=== PATIENT | female | born 1965 | race Caucasian/White ===

== ENCOUNTER 2021-10-07 18:37 | Inpatient (IN) ==
[2021-10-07 19:16] VITALS: BMI 23.3
--- NOTE | 2021-10-07 19:51 | DR.NAUSEAF ---
HPI Time Seen Time Seen by Provider: 10/07/21 19:50 Primary Care Physician Primary Care Physician: LEANNE DOE AT [facility] Complaints Chief Complaint Doctors Comments: Abd pain with N/V onset last PM Chief Complaint:: PT IN ED VIA WHEELCHAIR WITH C/O NAUSEA AN VOMITING SINCE LAST NIGHT. PT STATES SHE THINKS SHE MAY HAVE A BLOCKAGE. COVID-19 Coronavirus risk:travel/contact w/high risk person: No Has patient experienced Coronavirus symptoms: No Reviewed Nurses Notes Reviewed: Yes Source History Provided: Patient Mode of Arrival Mode of Arrival: Wheelchair Timing Onset of Chief Complaint: 10/06/21 Associated Signs and Symptoms Abdominal Pain Quality: Aching Abdominal Pain Location: Diffuse PMH PMH Past Medical History: Yes Past Medical History: Arthritis, Depression and Seizures Past Medical History Comment: CROHNS DISEASE Past Surgical History: Yes Surgical History: Abdominal Surgery, PREPARATION [employer] FREEZING Surgery and Other Past Surgical History Comment: COLOSTOMY BRAIN HERNIA Family History History of Family Medical Conditions: Yes Family Medical History: Diabetes Mellitus, Cancer, [place], Coronary Artery Disease, Heart Failure and Hypertension Social History Does patient currently use any type of tobacco product: No Have you used tobacco products in the last 12 months: No Type of Tobacco Use: None Does any household member use tobacco: No Alcohol Use: None Do you use any recreational Drugs:: No Lives With: Alone Lives Where: Home Travel Risk Coronavirus risk:travel/contact w/high risk person: No Has patient experienced Coronavirus symptoms: No Infectious screening In the last 2 months have you had wt loss of >10#?: NO Have you had fever, night sweats or hemotysis?: No Have you traveled outside the country in the last 6 months?: No Isolation: Standard ROS Review of Systems Constitutional: No Symptoms Reported and See HPI Eyes: No Symptoms Reported and See HPI ENTM: No Symptoms Reported and See HPI Respiratoy: No Symptoms Reported and See HPI Cardiovascular: No Symptoms Reported and See HPI Gastrointestinal/Abdominal: No Symptoms Reported and See HPI Genitourinary: No Symptoms Reported and See HPI Neurological: No Symptoms Reported and See HPI Musculoskeletal: No Symptoms Reported and See HPI Integumentary: No Symptoms Reported and See HPI Hematologic/Lymphatic: No Symptoms Reported and See HPI Endocrine: No Symptoms Reported and See HPI Psychiatric: No Symptoms Reported and See HPI All Other Systems: Reviewed and Negative PE Vital Signs Vitals: Temperature 97.6 F Pulse Rate 53 Respiratory Rate 16 Blood Pressure [Right Arm] 122/78 Blood Pressure 89/64 O2 Sat by Pulse Oximetry 98 General Limitations: No Limitations General Appearance: Alert and In No Apparent Distress Head Head Exam: Normal Inspection Eyes Eye exam: Normal Appearance ENT ENT Exam: Normal Exam Neck Neck Exam: Normal Inspection Chest Chest Inspection: Normal Inspection Respiratory Respiratory Exam: Normal Lung Sounds Bilat Respiratory Exam: Bilateral: Clear to Auscultation Cardiovascular Cardiovascular Exam: Regular Rate and Normal Rhythm Abdominal Exam Abdominal Exam: Normal Inspection, Normal Bowel Sounds and Soft Rectal Rectal Exam: Deferred External Exam: Female: Deferred : Speculum Exam (Female): Deferred : Bimanual Exam (female): Deferred Extremities Extremities Exam: Normal Inspection Back Back Exam: Normal Inspection Neurologic Neurological Exam: Alert and Oriented X3 Psychiatric Psychiatric Exam: Normal Affect and Normal Mood Skin Skin Exam: Warm, Dry, Intact and Normal Color MDM Differential Diagnosis Differential Diagnosis: Considerations may Include:: Bowel Obstruction, Gastroenteritis, Inflammatory BD and Urinary Tract Infection COURSE Treatment Treatment: Labs, CT, and medications Reevaluation 1st: Improved Consultation Called: 23:17 Consultation Comments: Spoke with Dr. Pal agrees to admit patient Education/Counseling Education/Counseling: Patient Educated On: Treatment and Diagnosis ROR Labs Reviewed Laboratory Results Reviewed?: Yes Result Diagrams: 10/11/21 05:45 10/11/21 05:45 Laboratory: WBC 9.7 X10^3/uL (3.6-10.0) 10/07/21 20:05 RBC 4.28 X10^6/uL (3.5-5.4) 10/07/21 20:05 Hgb 13.3 g/dL (12.0-16.0) 10/07/21 20:05 Hct 39.5 % (36.0-47.0) 10/07/21 20:05 MCV 92.2 fL (80.0-100.0) 10/07/21 20:05 MCH 31.0 pg (27.0-34.0) 10/07/21 20:05 MCHC 33.6 g/dL (33.0-35.0) 10/07/21 20:05 RDW 14.0 % (11.6-16.5) 10/07/21 20:05 Plt Count 261 X10^3/uL (150.0-450.0) 10/07/21 20:05 Plt Count Comment Adequate (ADEQUATE) 10/07/21 20:05 MPV 8.0 fL (7.4-11.0) 10/07/21 20:05 Neut % (Auto) 90.4 % (42.0-75.0) H 10/07/21 20:05 Lymph % (Auto) 6.3 % (21.0-51.0) L 10/07/21 20:05 [place] % (Auto) 2.9 % (0.0-13.0) 10/07/21 20:05 Eos % (Auto) 0.2 % (0.9-2.9) L 10/07/21 20:05 Baso % (Auto) 0.2 % (0.2-1.0) 10/07/21 20:05 Neut # (Auto) 8.7 x10^3/uL (2.2-4.8) H 10/07/21 20:05 Lymph # (Auto) 0.6 X10^3/uL (1.3-2.9) L 10/07/21 20:05 [place] # (Auto) 0.3 x10^3/uL (0.3-0.8) 10/07/21 20:05 Eos # (Auto) 0.0 x10^3/uL (0.0-0.2) 10/07/21 20:05 Baso # (Auto) 0.0 X10^3/uL (0.0-0.1) 10/07/21 20:05 Absolute Nucleated RBC 0.0 /100WBC 10/07/21 20:05 Total Counted 100 10/07/21 20:05 Neutrophils % (Manual) 90 % (39-76) H 10/07/21 20:05 Lymphocytes % (Manual) 9 % (13-43) L 10/07/21 20:05 Monocytes % (Manual) 1 % (4-9) L 10/07/21 20:05 Plt Morphology Comment Normal (NORMAL) 10/07/21 20:05 RBC Morphology Normal (NORMAL) 10/07/21 20:05 Sodium 136 mmol/L (136-145) 10/07/21 20:05 Corrected Sodium 137 mmol/L (136-145) 10/07/21 20:05 Potassium 4.2 mmol/L (3.5-5.1) 10/07/21 20:05 Chloride 102 mmol/L (98-107) 10/07/21 20:05 Carbon Dioxide 24.3 mmol/L (21-32) 10/07/21 20:05 BUN 8 mg/dL (7-18) 10/07/21 20:05 Creatinine 0.98 mg/dL (0.55-1.02) 10/07/21 20:05 Est GFR (MDRD) Af Amer > 60 (>60) 10/07/21 20:05 Est GFR (MDRD) Non-Af > 60 (>60) 10/07/21 20:05 Glucose 154 mg/dL (65-99) H 10/07/21 20:05 Calcium 9.3 mg/dL (8.5-10.1) 10/07/21 20:05 Corrected Calcium TNP 10/07/21 20:05 Total Bilirubin 1.40 mg/dL (0.2-1.0) H 10/07/21 20:05 AST 23 Units/L (15-37) 10/07/21 20:05 ALT 30 Units/L (12-78) 10/07/21 20:05 Alkaline Phosphatase 129 Units/L (46-116) H 10/07/21 20:05 Total Protein 8.0 g/dL (6.4-8.2) 10/07/21 20:05 Albumin 4.2 g/dL (3.4-5.0) 10/07/21 20:05 Globulin 3.8 g/dL (2.5-4.5) 10/07/21 20:05 Albumin/Globulin Ratio 1.1 Ratio (1.1-2.1) 10/07/21 20:05 Amylase 60 Units/L (25-115) 10/07/21 20:05 Lipase 78 Units/L (73-393) 10/07/21 20:05 Specimen Type Clean catch urine 10/07/21 20:20 Urine Color Yellow (YELLOW) 10/07/21 20:20 Urine Appearance Clear (CLEAR) 10/07/21 20:20 Urine pH 5.0 (5.0 - 8.0) 10/07/21 20:20 Ur Specific [place] 1.020 (1.000-1.030) 10/07/21 20:20 Urine Protein 2+ (NEGATIVE) 10/07/21 20:20 Urine Glucose (UA) Negative (NEGATIVE) 10/07/21 20:20 Urine Ketones Negative (NEGATIVE) 10/07/21 20:20 Urine Blood 1+ (NEGATIVE) 10/07/21 20:20 Urine Nitrite Negative (NEGATIVE) 10/07/21 20:20 Urine Bilirubin Negative (NEGATIVE) 10/07/21 20:20 Urine Urobilinogen Normal (NORMAL) 10/07/21 20:20 Ur Leukocyte Esterase Negative (NEGATIVE) 10/07/21 20:20 Urine RBC 3-5 /HPF (0-3) A 10/07/21 20:20 Urine WBC 0-2 /HPF (0-5) 10/07/21 20:20 Ur Squamous Epith Cells Few /HPF (NEGATIVE) 10/07/21 20:20 Urine Bacteria Trace /HPF (NEGATIVE) 10/07/21 20:20 Hyaline Casts Many /LPF (NEGATIVE) 10/07/21 20:20 Granular Casts Moderate /LPF (NEGATIVE) 10/07/21 20:20 Urine Mucus Many /HPF (NEGATIVE) 10/07/21 20:20 Ur Culture Indicated? No/not indicated 10/07/21 20:20 Other Results Comments: Discussed with patient XRAY XRAY Interpreted by: Radiologist X-ray Results: Name: TAMMY GIRARD [facility]#: [id number] : 1965 Sex: F Location: ER Order Number(s): [id number] Procedure(s):ABDOMEN/PELVIS W/O CON Ordering Physician: ADITYA FOX Primary Care: MATT DOE Service Date: 10/07/21 Service Time: 1952 EXAM: CT ABDOMEN AND PELVIS WITHOUT INTRAVENOUS CONTRAST HISTORY: Pain. Nausea and vomiting. TECHNIQUE: Spiral axial CT images are obtained through the abdomen and pelvis without the administration of intravenous contrast. Additional coronal and sagittal reformatted images are reconstructed. DOSIMETRY: Total DLP 433 mGycm; CTDI 8.9 mGy COMPARISON: None available. FINDINGS: GASTROINTESTINAL TRACT: There is suggestion of status post gastric bypass surgery. No evidence of gross anastomotic dehiscence seen. There are up to 4.5 cm dilated, thickened appearing, debris-filled and fluid-filled small bowel loops within the abdomen and pelvis, with completely collapsed proximal and distal small bowel loops, in keeping with high-grade small bowel obstruction; possible afferent loop obstruction (in the setting of Sharifa-en-Y) or closed-loop obstruction. No evidence for pneumatosis intestinalis, portal venous air or free intraperitoneal air, but early ischemic bowel disease cannot be entirely excluded in the appropriate clinical setting. Careful clinical correlation is advised. There is no evidence for bowel herniation, appendicitis, colitis or diverticulitis. Status post partial bowel resection with reanastomosis in the anorectal region; no anastomotic dehiscence seen. GENITOURINARY SYSTEM: There are multiple bilateral nonobstructing renal medullary region calculi; DDx includes medullary nephrocalcinosis. The kidneys are otherwise unremarkable. There is no ureteral calculus or stigmata of obstructive uropathy. The urinary bladder is grossly unremarkable for a non-dedicated exam. CT ABDOMEN: There is cholelithiasis (with calcified dependent intraluminal gallstones) in keeping with sequela of chronic cholecystitis. Dilated gallbladder; nonspecific finding which may represent sequela of NPO status; consider follow-up evaluation with ultrasound and/or HIDA scan to rule out acute gallbladder disease if clinically warranted. The liver, spleen, pancreas, adrenal glands, aorta, and inferior vena cava are within normal limits for a noncontrast CT scan. There is no intra-abdominal or retroperitoneal lymphadenopathy, free fluid, or free air seen. No abdominal herniation is noted. CT PELVIS: No pelvic sidewall or inguinal lymphadenopathy is seen. No inguinal herniation is noted. No free fluid or free air is seen. Status post hysterectomy. BONES AND JOINTS: The visualized bony structures are within normal limits. LUNG BASES: The lung bases are clear. IMPRESSION: 1. Up to 4.5 cm dilated, thickened appearing, debris-filled and fluid-filled small bowel loops within the abdomen and pelvis, with completely collapsed proximal and distal small bowel loops, in keeping with high-grade small bowel obstruction; possible afferent loop obstruction (in the setting of Sharifa-en-Y) or closed-loop obstruction. 2. No evidence for pneumatosis intestinalis, portal venous air or free intraperitoneal air, but early ischemic bowel disease cannot be entirely excluded in the appropriate clinical setting. Careful clinical correlation is advised. 3. Cholelithiasis (with calcified dependent intraluminal gallstones) in keeping with sequela of chronic cholecystitis. 4. Dilated gallbladder; nonspecific finding which may represent sequela of NPO status; consider follow-up evaluation with ultrasound and/or HIDA scan to rule out acute gallbladder disease if clinically warranted. 5. multiple bilateral nonobstructing renal medullary region calculi; DDx includes medullary nephrocalcinosis; no no ureteral stones or obstructive uropathy. 6. No free fluid, free air, mass lesions, or lymphadenopathy seen. Electronically signed by: Emory Howell (Oct 07, 2021 21:41:34) Report Electronically signed: 10/07/218 CC: Aditya Fox Opioid Opioid Risk Tool Age (Addy box if 16-45): No History of Preadolescent Sexual Abuse: No Total: 0 Total Score Risk Category: Low Risk Copyright: Archie RAMIREZ predicting aberrant behaviors Instructions Instructions: Nausea, Adult Nausea and Vomiting, Adult Nausea and Vomiting, Adult, [id number] Nausea, Adult, [id number] Forms: Excuse From Work or School Precautions for COVID19 [facility] Patient Portal Social Distancing
[2021-10-07] MEDS ORDERED: PEPCID 20 MG VIAL 20 MG in NS 50 ML IV 50 ML IV ONE (19:55)
[2021-10-07] MEDS ORDERED: NS 1,000 ML IV 1,000 ML ONE (20:09)
[2021-10-07] MEDS ORDERED: PEPCID 20 MG VIAL ONE (20:11)
[2021-10-07] MEDS ORDERED: NS 50 ML IV 50 ML IV ONE (20:13)
[2021-10-07 20:14] LABS: BASOPHILS % (AUTO) 0.2 % (0.2-1.0); EOSINOPHILS % (AUTO) 0.2 % (0.9-2.9); HEMATOCRIT 39.5 % (36.0-47.0); HEMOGLOBIN 13.3 g/dL (12.0-16.0); LYMPHOCYTES # (AUTO) 0.6 X10^3/uL (1.3-2.9); LYMPHOCYTES % (AUTO) 6.3 % (21.0-51.0); MEAN CORPUSCULAR HGB CONC 33.6 g/dL (33.0-35.0); MEAN CORPUSCULAR VOLUME 92.2 fL (80.0-100.0); MONOCYTES # (AUTO) 0.3 x10^3/uL (0.3-0.8); MONOCYTES % (AUTO) 2.9 % (0.0-13.0); NEUTROPHILS # (AUTO) 8.7 x10^3/uL (2.2-4.8); NEUTROPHILS % (AUTO) 90.4 % (42.0-75.0); RED BLOOD COUNT 4.28 X10^6/uL (3.5-5.4); WHITE BLOOD COUNT 9.7 X10^3/uL (3.6-10.0)
[2021-10-07 20:25] LABS: PLATELET MORPHOLOGY COMMENT NORMAL (NORMAL)
[2021-10-07] MEDS ORDERED: ZOFRAN INJ 4 MG VIAL IVP ONE ×2 (20:29→23:15)
[2021-10-07] MEDS ORDERED: ZOFRAN INJ 4 MG VIAL ONE ×2 (20:31→23:26)
[2021-10-07 20:37] LABS: ALANINE AMINOTRANSFERASE 30 Units/L (12-78); ALBUMIN 4.2 g/dL (3.4-5.0); ALKALINE PHOSPHATASE 129 Units/L (46-116); AMYLASE 60 Units/L (25-115); ASPARTATE AMINO TRANSFERASE 23 Units/L (15-37); BLOOD UREA NITROGEN 8 mg/dL (7-18); CALCIUM 9.3 mg/dL (8.5-10.1); CARBON DIOXIDE 24.3 mmol/L (21-32); CHLORIDE 102 mmol/L (98-107); COR NA(FOR HYPERGLY) 137 mmol/L (136-145); CREATININE 0.98 mg/dL (0.55-1.02); LIPASE 78 Units/L (73-393); SODIUM 136 mmol/L (136-145); eGFR NON BLACK RACES > 60 (>60)
[2021-10-07] MEDS: NS 1,000 ML IV 1,000 ML IV SCH (20:52)
[2021-10-07 21:01] LABS: BILIRUBIN,URINE NEGATIVE (NEGATIVE); BLOOD/HEMOGLOBIN,URINE 1+ (NEGATIVE); GLUCOSE, URINE NEGATIVE (NEGATIVE); KETONES,URINE NEGATIVE (NEGATIVE); LEUKOCYTE ESTERASE ,URINE NEGATIVE (NEGATIVE); NITRITES,URINE NEGATIVE (NEGATIVE); PROTEIN,URINE 2+ (NEGATIVE); UROBILINOGEN,URINE NORMAL (NORMAL)
[2021-10-07 21:06] LABS: APPEARANCE,URINE CLEAR (CLEAR); COLOR,URINE YELLOW (YELLOW)
[2021-10-07 21:07] LABS: BACTERIA,URINE TRACE /HPF (NEGATIVE); GRANULAR CASTS,URINE MODERATE /LPF (NEGATIVE); HYALINE CASTS, URINE MANY /LPF (NEGATIVE); SQUAMOUS EPITHELIAL CELL,UR FEW /HPF (NEGATIVE)
--- NOTE | 2021-10-07 21:42 | CT ---
EXAM: CT ABDOMEN AND PELVIS WITHOUT INTRAVENOUS CONTRASTHISTORY: Pain. Nausea and vomiting.TECHNIQUE: Spiral axial CT images are obtained through the abdomen and pelvis without the administration of intravenous contrast. Additional coronal and sagittal reformatted images are reconstructed.DOSIMETRY: Total DLP 433 mGycm; CTDI 8.9 mGyCOMPARISON: None available.FINDINGS:GASTROINTESTINAL TRACT: There is suggestion of status post gastric bypass surgery. No evidence of gross anastomotic dehiscence seen. There are up to 4.5 cm dilated, thickened appearing, debris-filled and fluid-filled small bowel loops within the abdomen and pelvis, with completely collapsed proximal and distal small bowel loops, in keeping with high-grade small bowel obstruction; possible afferent loop obstruction (in the setting of Sharifa-en-Y) or closed-loop obstruction. No evidence for pneumatosis intestinalis, portal venous air or free intraperitoneal air, but early ischemic bowel disease cannot be entirely excluded in the appropriate clinical setting. Careful clinical correlation is advised. There is no evidence for bowel herniation, appendicitis, colitis or diverticulitis. Status post partial bowel resection with reanastomosis in the anorectal region; no anastomotic dehiscence seen.GENITOURINARY SYSTEM: There are multiple bilateral nonobstructing renal medullary region calculi; DDx includes medullary nephrocalcinosis. The kidneys are otherwise unremarkable. There is no ureteral calculus or stigmata of obstructive uropathy. The urinary bladder is grossly unremarkable for a non-dedicated exam.CT ABDOMEN: There is cholelithiasis (with calcified dependent intraluminal gallstones) in keeping with sequela of chronic cholecystitis. Dilated gallbladder; nonspecific finding which may represent sequela of NPO status; consider follow-up evaluation with ultrasound and/or HIDA scan to rule out acute gallbladder disease if clinically warranted. The liver, spleen, pancreas, adrenal glands, aorta, and inferior vena cava are within normal limits for a noncontrast CT scan. There is no intra-abdominal or retroperitoneal lymphadenopathy, free fluid, or free air seen. No abdominal herniation is noted.CT PELVIS: No pelvic sidewall or inguinal lymphadenopathy is seen. No inguinal herniation is noted. No free fluid or free air is seen. Status post hysterectomy.BONES AND JOINTS: The visualized bony structures are within normal limits.LUNG BASES: The lung bases are clear.IMPRESSION:1. Up to 4.5 cm dilated, thickened appearing, debris-filled and fluid-filled small bowel loops within the abdomen and pelvis, with completely collapsed proximal and distal small bowel loops, in keeping with high-grade small bowel obstruction; possible afferent loop obstruction (in the setting of Sharifa-en-Y) or closed-loop obstruction.2. No evidence for pneumatosis intestinalis, portal venous air or free intraperitoneal air, but early ischemic bowel disease cannot be entirely excluded in the appropriate clinical setting. Careful clinical correlation is advised.3. Cholelithiasis (with calcified dependent intraluminal gallstones) in keeping with sequela of chronic cholecystitis.4. Dilated gallbladder; nonspecific finding which may represent sequela of NPO status; consider follow-up evaluation with ultrasound and/or HIDA scan to rule out acute gallbladder disease if clinically warranted.5. multiple bilateral nonobstructing renal medullary region calculi; DDx includes medullary nephrocalcinosis; no no ureteral stones or obstructive uropathy.6. No free fluid, free air, mass lesions, or lymphadenopathy seen.Electronically signed by: Emory Howell (Oct 07, 2021 21:41:34)
[2021-10-07] MEDS ORDERED: DEMEROL INJ IVP ONE (23:15)
[2021-10-07] MEDS ORDERED: DEMEROL INJ ONE (23:26)
[2021-10-08] MEDS: NS 1,000 ML IV 1,000 ML IV SCH ×4 (05:40→20:19)
[2021-10-08 06:21] LABS: BASOPHILS # (AUTO) 0.1 X10^3/uL (0.0-0.1); BASOPHILS % (AUTO) 0.9 % (0.2-1.0); HEMATOCRIT 39.7 % (36.0-47.0); HEMOGLOBIN 13.3 g/dL (12.0-16.0); LYMPHOCYTES # (AUTO) 0.9 X10^3/uL (1.3-2.9); MEAN CORPUSCULAR HEMOGLOBIN 30.5 pg (27.0-34.0); MEAN CORPUSCULAR HGB CONC 33.4 g/dL (33.0-35.0); MEAN CORPUSCULAR VOLUME 91.2 fL (80.0-100.0); MEAN PLATELET VOLUME 8.8 fL (7.4-11.0); MONOCYTES # (AUTO) 0.4 x10^3/uL (0.3-0.8); MONOCYTES % (AUTO) 5.7 % (0.0-13.0); NEUTROPHILS % (AUTO) 81.4 % (42.0-75.0); RED BLOOD COUNT 4.35 X10^6/uL (3.5-5.4); RED CELL DISTRIBUTION WIDTH 14.2 % (11.6-16.5); WHITE BLOOD COUNT 7.3 X10^3/uL (3.6-10.0)
[2021-10-08 06:51] LABS: ALANINE AMINOTRANSFERASE 30 Units/L (12-78); ALKALINE PHOSPHATASE 128 Units/L (46-116); ASPARTATE AMINO TRANSFERASE 21 Units/L (15-37); BLOOD UREA NITROGEN 9 mg/dL (7-18); CALCIUM 9.2 mg/dL (8.5-10.1); CARBON DIOXIDE 23.6 mmol/L (21-32); CHLORIDE 102 mmol/L (98-107); CREATININE 0.87 mg/dL (0.55-1.02); SODIUM 137 mmol/L (136-145); TOTAL PROTEIN 7.9 g/dL (6.4-8.2); eGFR NON BLACK RACES > 60 (>60)
[2021-10-08] MEDS: MORPHINE SULFATE INJ 2 MG INJ IVP PRN ×3 (09:23→20:19)
[2021-10-08] MEDS: ZOFRAN INJ 4 MG VIAL IVP PRN ×3 (09:24→22:31)
--- NOTE | 2021-10-08 09:42 | RAD ---
HISTORYSmall bowel obstructionSTUDYKUBCOMPARISONCT abdomen pelvis 10/07/2021FINDINGSThere are some dilated small bowel loops in the left upper quadrant. Findings are suggestive of small-bowel obstruction. It should be noted that many of the dilated small bowel loops detected on the recent CT were fluid-filled and would not definitely be visualized on plain film. Cholelithiasis is present. Regional skeleton is intact.IMPRESSIONFindings consistent with at least a partial small bowel obstructionCholelithiasisElectronically signed by: PHU COON (Oct 08, 2021 09:42:02)
[2021-10-09] MEDS: NS 1,000 ML IV 1,000 ML IV SCH ×4 (00:33→20:16)
[2021-10-09] MEDS: MORPHINE SULFATE INJ 2 MG INJ IVP PRN ×4 (03:14→17:47)
[2021-10-09] MEDS: ZOFRAN INJ 4 MG VIAL IVP PRN ×2 (03:20→17:47)
[2021-10-09 04:35] LABS: BASOPHILS % (AUTO) 0.3 % (0.2-1.0); EOSINOPHILS # (AUTO) 0.1 x10^3/uL (0.0-0.2); EOSINOPHILS % (AUTO) 1.1 % (0.9-2.9); HEMATOCRIT 37.6 % (36.0-47.0); HEMOGLOBIN 12.3 g/dL (12.0-16.0); LYMPHOCYTES % (AUTO) 14.4 % (21.0-51.0); MEAN CORPUSCULAR HEMOGLOBIN 30.4 pg (27.0-34.0); MEAN CORPUSCULAR HGB CONC 32.7 g/dL (33.0-35.0); MEAN PLATELET VOLUME 8.4 fL (7.4-11.0); MONOCYTES # (AUTO) 0.4 x10^3/uL (0.3-0.8); MONOCYTES % (AUTO) 5.9 % (0.0-13.0); NEUTROPHILS # (AUTO) 5.6 x10^3/uL (2.2-4.8); NEUTROPHILS % (AUTO) 78.3 % (42.0-75.0); RED BLOOD COUNT 4.05 X10^6/uL (3.5-5.4); RED CELL DISTRIBUTION WIDTH 14.4 % (11.6-16.5); WHITE BLOOD COUNT 7.1 X10^3/uL (3.6-10.0)
[2021-10-09 04:52] LABS: ALANINE AMINOTRANSFERASE 20 Units/L (12-78); ALKALINE PHOSPHATASE 103 Units/L (46-116); ASPARTATE AMINO TRANSFERASE 19 Units/L (15-37); BLOOD UREA NITROGEN 14 mg/dL (7-18); CARBON DIOXIDE 19.9 mmol/L (21-32); CHLORIDE 105 mmol/L (98-107); COR CA(FOR HYPOALB) 8.8 mg/dL (8.5-10.1); CREATININE 0.76 mg/dL (0.55-1.02); SODIUM 136 mmol/L (136-145); TOTAL PROTEIN 6.3 g/dL (6.4-8.2); eGFR NON BLACK RACES > 60 (>60)
[2021-10-09] MEDS ORDERED: D50W ABBOJECT SYR IV ONE (05:11)
--- NOTE | 2021-10-09 08:30 | RAD ---
HISTORYFollow-up small bowel [id number]/05/2022 KUB, 10/07/2021 CT abdomen pelvis without contrastFINDINGSThere is an ostomy in the left upper quadrant. No significant air-filled dilated small bowel loops are identified. It should be noted that the dilated loops of small bowel noted on the recent CT abdomen pelvis were predominantly fluid-filled and may not be visible on plain films. Follow-up should be with CT when clinically indicated. Cholelithiasis is present. Regional skeleton is intact.IMPRESSIONNo dilated air filled small bowel loops identified. However, see discussion aboveCholelithiasisElectronically signed by: PHU COON (Oct 09, 2021 08:30:35)
--- NOTE | 2021-10-09 16:47 | DR.PROGNOT ---
Hospital Progress Notes - Progress Note for Day of: Progress Note Date: 10/09/21 - Chief Complaint Chief Complaint: still having lower abdominal pain more on LLQ . no nausea or vomiting .. ileostomy is functioning well with liquid stool .. adominal X ray showed no obstruction - Past Medical Family Social History Past Med/Fam/Surg Hx: No changes since H&P Allergies: Allergies esomeprazole [From Nexium] Adverse Reaction (Verified 08/09/21 07:44) mercaptopurine Adverse Reaction (Verified 08/09/21 07:44) metronidazole Adverse Reaction (Verified 08/09/21 07:44) prochlorperazine [From Compazine] Adverse Reaction (Verified 08/09/21 07:44) - Review Of Systems ROS: No change since H&P - Vital Signs Vital Signs: Temperature 98.3 F Pulse Rate [Right Brachial] 82 Pulse Rate 53 Respiratory Rate 20 Blood Pressure [Left Arm] 103/61 Blood Pressure [Right Arm] 136/79 Blood Pressure 89/64 O2 Sat by Pulse Oximetry 100 - Physical Exam Oriented: Normal Eyes: Normal Ear: Normal Nose: Normal Throat: Normal Respiratory: Normal Cardiovascular: Normal : Normal GI:Auscultation: Normal GI: Tenderness: Diffuse, LLQ (eliostomy is functioning .. full abdomen with lower tenderness .. BS+ ) Speech Pattern: Clear, Appropriate - Laboratory and Diagnostics Result Diagrams: 10/09/21 04:05 10/09/21 04:05 Labs: Laboratory WBC 7.1 X10^3/uL (3.6-10.0) 10/09/21 04:05 RBC 4.05 X10^6/uL (3.5-5.4) 10/09/21 04:05 Hgb 12.3 g/dL (12.0-16.0) 10/09/21 04:05 Hct 37.6 % (36.0-47.0) 10/09/21 04:05 MCV 93.0 fL (80.0-100.0) 10/09/21 04:05 MCH 30.4 pg (27.0-34.0) 10/09/21 04:05 MCHC 32.7 g/dL (33.0-35.0) L 10/09/21 04:05 RDW 14.4 % (11.6-16.5) 10/09/21 04:05 Plt Count 235 X10^3/uL (150.0-450.0) 10/09/21 04:05 Plt Count Comment Adequate (ADEQUATE) 10/07/21 20:05 MPV 8.4 fL (7.4-11.0) 10/09/21 04:05 Neut % (Auto) 78.3 % (42.0-75.0) H 10/09/21 04:05 Lymph % (Auto) 14.4 % (21.0-51.0) L 10/09/21 04:05 [place] % (Auto) 5.9 % (0.0-13.0) 10/09/21 04:05 Eos % (Auto) 1.1 % (0.9-2.9) 10/09/21 04:05 Baso % (Auto) 0.3 % (0.2-1.0) 10/09/21 04:05 Neut # (Auto) 5.6 x10^3/uL (2.2-4.8) H 10/09/21 04:05 Lymph # (Auto) 1.0 X10^3/uL (1.3-2.9) L 10/09/21 04:05 [place] # (Auto) 0.4 x10^3/uL (0.3-0.8) 10/09/21 04:05 Eos # (Auto) 0.1 x10^3/uL (0.0-0.2) 10/09/21 04:05 Baso # (Auto) 0.0 X10^3/uL (0.0-0.1) 10/09/21 04:05 Absolute Nucleated RBC 0.0 /100WBC 10/09/21 04:05 Total Counted 100 10/07/21 20:05 Neutrophils % (Manual) 90 % (39-76) H 10/07/21 20:05 Lymphocytes % (Manual) 9 % (13-43) L 10/07/21 20:05 Monocytes % (Manual) 1 % (4-9) L 10/07/21 20:05 Plt Morphology Comment Normal (NORMAL) 10/07/21 20:05 RBC Morphology Normal (NORMAL) 10/07/21 20:05 Sodium 136 mmol/L (136-145) 10/09/21 04:05 Corrected Sodium TNP 10/09/21 04:05 Potassium 3.9 mmol/L (3.5-5.1) 10/09/21 04:05 Chloride 105 mmol/L (98-107) 10/09/21 04:05 Carbon Dioxide 19.9 mmol/L (21-32) L 10/09/21 04:05 BUN 14 mg/dL (7-18) 10/09/21 04:05 Creatinine 0.76 mg/dL (0.55-1.02) 10/09/21 04:05 Est GFR (MDRD) Af Amer > 60 (>60) 10/09/21 04:05 Est GFR (MDRD) Non-Af > 60 (>60) 10/09/21 04:05 Glucose 66 mg/dL (65-99) 10/09/21 04:05 POC Glucose (mg/dL) 78 mg/dL (65-99) 10/09/21 06:23 Calcium 8.0 mg/dL (8.5-10.1) L 10/09/21 04:05 Corrected Calcium 8.8 mg/dL (8.5-10.1) 10/09/21 04:05 Total Bilirubin 1.30 mg/dL (0.2-1.0) H 10/09/21 04:05 AST 19 Units/L (15-37) 10/09/21 04:05 ALT 20 Units/L (12-78) 10/09/21 04:05 Alkaline Phosphatase 103 Units/L (46-116) 10/09/21 04:05 Total Protein 6.3 g/dL (6.4-8.2) L 10/09/21 04:05 Albumin 3.0 g/dL (3.4-5.0) L 10/09/21 04:05 Globulin 3.3 g/dL (2.5-4.5) 10/09/21 04:05 Albumin/Globulin Ratio 0.9 Ratio (1.1-2.1) L 10/09/21 04:05 Amylase 60 Units/L (25-115) 10/07/21 20:05 Lipase 78 Units/L (73-393) 10/07/21 20:05 Specimen Type Clean catch urine 10/07/21 20:20 Urine Color Yellow (YELLOW) 10/07/21 20:20 Urine Appearance Clear (CLEAR) 10/07/21 20:20 Urine pH 5.0 (5.0 - 8.0) 10/07/21 20:20 Ur Specific [place] 1.020 (1.000-1.030) 10/07/21 20:20 Urine Protein 2+ (NEGATIVE) 10/07/21 20:20 Urine Glucose (UA) Negative (NEGATIVE) 10/07/21 20:20 Urine Ketones Negative (NEGATIVE) 10/07/21 20:20 Urine Blood 1+ (NEGATIVE) 10/07/21 20:20 Urine Nitrite Negative (NEGATIVE) 10/07/21 20:20 Urine Bilirubin Negative (NEGATIVE) 10/07/21 20:20 Urine Urobilinogen Normal (NORMAL) 10/07/21 20:20 Ur Leukocyte Esterase Negative (NEGATIVE) 10/07/21 20:20 Urine RBC 3-5 /HPF (0-3) A 10/07/21 20:20 Urine WBC 0-2 /HPF (0-5) 10/07/21 20:20 Ur Squamous Epith Cells Few /HPF (NEGATIVE) 10/07/21 20:20 Urine Bacteria Trace /HPF (NEGATIVE) 10/07/21 20:20 Hyaline Casts Many /LPF (NEGATIVE) 10/07/21 20:20 Granular Casts Moderate /LPF (NEGATIVE) 10/07/21 20:20 Urine Mucus Many /HPF (NEGATIVE) 10/07/21 20:20 Ur Culture Indicated? No/not indicated 10/07/21 20:20 - Assessment and Plan 1: resolving SBO . complicate dCrohn's disease .. to advance diet to full liquid . same IVF . consult DR Warren and continue Remicade as before ..
[2021-10-10] MEDS: MORPHINE SULFATE INJ 2 MG INJ IVP PRN ×4 (00:48→18:05)
[2021-10-10 06:09] LABS: BASOPHILS % (AUTO) 0.3 % (0.2-1.0); EOSINOPHILS # (AUTO) 0.1 x10^3/uL (0.0-0.2); EOSINOPHILS % (AUTO) 2.5 % (0.9-2.9); HEMATOCRIT 31.2 % (36.0-47.0); HEMOGLOBIN 10.5 g/dL (12.0-16.0); LYMPHOCYTES % (AUTO) 25.6 % (21.0-51.0); MEAN CORPUSCULAR HEMOGLOBIN 30.8 pg (27.0-34.0); MEAN CORPUSCULAR HGB CONC 33.6 g/dL (33.0-35.0); MEAN CORPUSCULAR VOLUME 91.7 fL (80.0-100.0); MEAN PLATELET VOLUME 8.3 fL (7.4-11.0); MONOCYTES # (AUTO) 0.4 x10^3/uL (0.3-0.8); MONOCYTES % (AUTO) 9.4 % (0.0-13.0); NEUTROPHILS # (AUTO) 2.5 x10^3/uL (2.2-4.8); NEUTROPHILS % (AUTO) 62.2 % (42.0-75.0); RED CELL DISTRIBUTION WIDTH 14.1 % (11.6-16.5); WHITE BLOOD COUNT 4.1 X10^3/uL (3.6-10.0)
[2021-10-10 06:33] LABS: ALANINE AMINOTRANSFERASE 18 Units/L (12-78); ALBUMIN 2.8 g/dL (3.4-5.0); ALKALINE PHOSPHATASE 89 Units/L (46-116); ASPARTATE AMINO TRANSFERASE 19 Units/L (15-37); BLOOD UREA NITROGEN 6 mg/dL (7-18); CALCIUM 7.9 mg/dL (8.5-10.1); CARBON DIOXIDE 21.9 mmol/L (21-32); CHLORIDE 106 mmol/L (98-107); COR CA(FOR HYPOALB) 8.9 mg/dL (8.5-10.1); CREATININE 0.59 mg/dL (0.55-1.02); SODIUM 137 mmol/L (136-145); TOTAL PROTEIN 5.9 g/dL (6.4-8.2); eGFR NON BLACK RACES > 60 (>60)
[2021-10-10] MEDS: NS 1,000 ML IV 1,000 ML IV SCH ×4 (07:35→20:20)
--- NOTE | 2021-10-10 12:23 | RAD ---
[id number] /06/2022FINDINGSThere is slight dilatation of bowel in the epigastric area. No large dilated small bowel segments are identified otherwise. Ostomy again noted left abdomen. The kidneys are obscured; 3 mm left renal calculus suggested.IMPRESSIONLittle definite change since 1 day earlier. See above. Obstructed, fluid filled, small bowel segments may not be readily appreciated on KUB. Consider follow-up abdomen CT for additional evaluation of possible SBO.Electronically signed by: MIKKI WANG (Oct 10, 2021 12:22:59)
[2021-10-10] MEDS ORDERED: CIPRO IV 400 MG PREMIX* 400 MG/200 ML IV.SOLN. IV SCH (13:00)
--- NOTE | 2021-10-10 16:56 | DR.PROGNOT ---
Hospital Progress Notes - Progress Note for Day of: Progress Note Date: 10/10/21 - Chief Complaint Chief Complaint: still having lower abdominal pain more on LLQ . no nausea or vomiting .. ileostomy is functioning well with liquid stool .. adominal X ray showed no clear obstruction . C Diff positive . Album 2.8 BUN/Creat normal Hgb 10.5 - Past Medical Family Social History Past Med/Fam/Surg Hx: No changes since H&P Allergies: Allergies esomeprazole [From Nexium] Adverse Reaction (Verified 08/09/21 07:44) mercaptopurine Adverse Reaction (Verified 08/09/21 07:44) metronidazole Adverse Reaction (Verified 08/09/21 07:44) prochlorperazine [From Compazine] Adverse Reaction (Verified 08/09/21 07:44) - Review Of Systems ROS: No change since H&P - Vital Signs Vital Signs: Temperature 97.6 F Pulse Rate [Right Brachial] 79 Pulse Rate 53 Respiratory Rate 18 Blood Pressure [Left Arm] 123/76 Blood Pressure [Right Arm] 136/79 Blood Pressure 89/64 O2 Sat by Pulse Oximetry 98 - Physical Exam Oriented: Normal Eyes: Normal Ear: Normal Nose: Normal Throat: Normal Respiratory: Normal Cardiovascular: Normal : Normal GI:Auscultation: Normal GI: Tenderness: Diffuse, LLQ (eliostomy is functioning .. full abdomen with lower tenderness .. BS+ ) Skin: Normal Musculoskeletal: Normal Speech Pattern: Clear, Appropriate - Laboratory and Diagnostics Result Diagrams: 10/10/21 05:46 10/10/21 05:46 Labs: 10/10/21 13:15 Stool - Final Laboratory WBC 4.1 X10^3/uL (3.6-10.0) 10/10/21 05:46 RBC 3.40 X10^6/uL (3.5-5.4) L 10/10/21 05:46 Hgb 10.5 g/dL (12.0-16.0) L 10/10/21 05:46 Hct 31.2 % (36.0-47.0) L 10/10/21 05:46 MCV 91.7 fL (80.0-100.0) 10/10/21 05:46 MCH 30.8 pg (27.0-34.0) 10/10/21 05:46 MCHC 33.6 g/dL (33.0-35.0) 10/10/21 05:46 RDW 14.1 % (11.6-16.5) 10/10/21 05:46 Plt Count 192 X10^3/uL (150.0-450.0) 10/10/21 05:46 Plt Count Comment Adequate (ADEQUATE) 10/07/21 20:05 MPV 8.3 fL (7.4-11.0) 10/10/21 05:46 Neut % (Auto) 62.2 % (42.0-75.0) 10/10/21 05:46 Lymph % (Auto) 25.6 % (21.0-51.0) 10/10/21 05:46 Nance % (Auto) 9.4 % (0.0-13.0) 10/10/21 05:46 Eos % (Auto) 2.5 % (0.9-2.9) 10/10/21 05:46 Baso % (Auto) 0.3 % (0.2-1.0) 10/10/21 05:46 Neut # (Auto) 2.5 x10^3/uL (2.2-4.8) 10/10/21 05:46 Lymph # (Auto) 1.0 X10^3/uL (1.3-2.9) L 10/10/21 05:46 Nance # (Auto) 0.4 x10^3/uL (0.3-0.8) 10/10/21 05:46 Eos # (Auto) 0.1 x10^3/uL (0.0-0.2) 10/10/21 05:46 Baso # (Auto) 0.0 X10^3/uL (0.0-0.1) 10/10/21 05:46 Absolute Nucleated RBC 0.0 /100WBC 10/10/21 05:46 Total Counted 100 10/07/21 20:05 Neutrophils % (Manual) 90 % (39-76) H 10/07/21 20:05 Lymphocytes % (Manual) 9 % (13-43) L 10/07/21 20:05 Monocytes % (Manual) 1 % (4-9) L 10/07/21 20:05 Plt Morphology Comment Normal (NORMAL) 10/07/21 20:05 RBC Morphology Normal (NORMAL) 10/07/21 20:05 Sodium 137 mmol/L (136-145) 10/10/21 05:46 Corrected Sodium TNP 10/10/21 05:46 Potassium 3.7 mmol/L (3.5-5.1) 10/10/21 05:46 Chloride 106 mmol/L (98-107) 10/10/21 05:46 Carbon Dioxide 21.9 mmol/L (21-32) 10/10/21 05:46 BUN 6 mg/dL (7-18) L 10/10/21 05:46 Creatinine 0.59 mg/dL (0.55-1.02) 10/10/21 05:46 Est GFR (MDRD) Af Amer > 60 (>60) 10/10/21 05:46 Est GFR (MDRD) Non-Af > 60 (>60) 10/10/21 05:46 Glucose 82 mg/dL (65-99) 10/10/21 05:46 POC Glucose (mg/dL) 92 mg/dL (65-99) 10/09/21 22:20 Calcium 7.9 mg/dL (8.5-10.1) L 10/10/21 05:46 Corrected Calcium 8.9 mg/dL (8.5-10.1) 10/10/21 05:46 Total Bilirubin 1.00 mg/dL (0.2-1.0) 10/10/21 05:46 AST 19 Units/L (15-37) 10/10/21 05:46 ALT 18 Units/L (12-78) 10/10/21 05:46 Alkaline Phosphatase 89 Units/L (46-116) 10/10/21 05:46 Total Protein 5.9 g/dL (6.4-8.2) L 10/10/21 05:46 Albumin 2.8 g/dL (3.4-5.0) L 10/10/21 05:46 Globulin 3.1 g/dL (2.5-4.5) 10/10/21 05:46 Albumin/Globulin Ratio 0.9 Ratio (1.1-2.1) L 10/10/21 05:46 Amylase 60 Units/L (25-115) 10/07/21 20:05 Lipase 78 Units/L (73-393) 10/07/21 20:05 Specimen Type Clean catch urine 10/07/21 20:20 Urine Color Yellow (YELLOW) 10/07/21 20:20 Urine Appearance Clear (CLEAR) 10/07/21 20:20 Urine pH 5.0 (5.0 - 8.0) 10/07/21 20:20 Ur Specific Mead 1.020 (1.000-1.030) 10/07/21 20:20 Urine Protein 2+ (NEGATIVE) 10/07/21 20:20 Urine Glucose (UA) Negative (NEGATIVE) 10/07/21 20:20 Urine Ketones Negative (NEGATIVE) 10/07/21 20:20 Urine Blood 1+ (NEGATIVE) 10/07/21 20:20 Urine Nitrite Negative (NEGATIVE) 10/07/21 20:20 Urine Bilirubin Negative (NEGATIVE) 10/07/21 20:20 Urine Urobilinogen Normal (NORMAL) 10/07/21 20:20 Ur Leukocyte Esterase Negative (NEGATIVE) 10/07/21 20:20 Urine RBC 3-5 /HPF (0-3) A 10/07/21 20:20 Urine WBC 0-2 /HPF (0-5) 10/07/21 20:20 Ur Squamous Epith Cells Few /HPF (NEGATIVE) 10/07/21 20:20 Urine Bacteria Trace /HPF (NEGATIVE) 10/07/21 20:20 Hyaline Casts Many /LPF (NEGATIVE) 10/07/21 20:20 Granular Casts Moderate /LPF (NEGATIVE) 10/07/21 20:20 Urine Mucus Many /HPF (NEGATIVE) 10/07/21 20:20 Ur Culture Indicated? No/not indicated 10/07/21 20:20 Stool for White Cells Positive (NEGATIVE) A 10/10/21 13:15 Stl C. diff Tox B Gene Positive (NEGATIVE) A 10/10/21 13:15 Stl C. diff [id number] Presumptive negative (NEGATIVE) 10/10/21 13:15 C. difficile Toxin A&B Positive (NEGATIVE) A 10/10/21 13:15 - Assessment and Plan 1: resolving SBO . complicated Crohn's disease .. on clear liquid . same IVF . on oral vancomycin.. ( allergic to Flagyl )
[2021-10-10] MEDS: VANCOMYCIN HCL 250 MG CAP PO SCH ×2 (18:06→20:20)
[2021-10-11] MEDS: VANCOMYCIN HCL 250 MG CAP PO SCH ×2 (02:08→09:51)
[2021-10-11] MEDS: NS 1,000 ML IV 1,000 ML IV SCH ×3 (04:10→12:44)
[2021-10-11 06:14] LABS: BASOPHILS % (AUTO) 0.3 % (0.2-1.0); EOSINOPHILS # (AUTO) 0.1 x10^3/uL (0.0-0.2); EOSINOPHILS % (AUTO) 3.1 % (0.9-2.9); HEMATOCRIT 31.6 % (36.0-47.0); HEMOGLOBIN 10.7 g/dL (12.0-16.0); MEAN CORPUSCULAR HEMOGLOBIN 30.6 pg (27.0-34.0); MEAN CORPUSCULAR HGB CONC 33.7 g/dL (33.0-35.0); MEAN CORPUSCULAR VOLUME 90.7 fL (80.0-100.0); MEAN PLATELET VOLUME 8.2 fL (7.4-11.0); MONOCYTES # (AUTO) 0.3 x10^3/uL (0.3-0.8); MONOCYTES % (AUTO) 9.4 % (0.0-13.0); NEUTROPHILS # (AUTO) 1.7 x10^3/uL (2.2-4.8); NEUTROPHILS % (AUTO) 54.2 % (42.0-75.0); RED BLOOD COUNT 3.48 X10^6/uL (3.5-5.4); RED CELL DISTRIBUTION WIDTH 14.6 % (11.6-16.5); WHITE BLOOD COUNT 3.2 X10^3/uL (3.6-10.0)
[2021-10-11 06:35] LABS: ALANINE AMINOTRANSFERASE 21 Units/L (12-78); ALKALINE PHOSPHATASE 90 Units/L (46-116); ASPARTATE AMINO TRANSFERASE 25 Units/L (15-37); BLOOD UREA NITROGEN 2 mg/dL (7-18); CALCIUM 8.3 mg/dL (8.5-10.1); CARBON DIOXIDE 24.2 mmol/L (21-32); CHLORIDE 107 mmol/L (98-107); COR CA(FOR HYPOALB) 9.1 mg/dL (8.5-10.1); CREATININE 0.46 mg/dL (0.55-1.02); SODIUM 141 mmol/L (136-145); TOTAL PROTEIN 6.1 g/dL (6.4-8.2); eGFR NON BLACK RACES > 60 (>60)
[2021-10-11] MEDS ORDERED: KLOR-CON PO PRN (06:49)
[2021-10-11] MEDS ORDERED: POTASSIUM CHLORIDE LIQ 20 MEQ UDC PO PRN (06:49)
[2021-10-11] MEDS ORDERED: POTASSIUM CHL 60 MEQ/NS 0.45% 500 ML IV PRN (06:49)
[2021-10-11] MEDS ORDERED: POTASSIUM CHL 40 MEQ/NS 0.45% 500 ML IV PRN (06:49)
[2021-10-11] MEDS ORDERED: K-RIDER 10 MEQ/NS 100 ML 10 MEQ/100 ML BAG IV PRN (06:49)
[2021-10-11] MEDS ORDERED: MICRO K EXTEN CAP 10 MEQ PO PRN (06:49)
[2021-10-11] MEDS ORDERED: K-DUR TAB 20 MEQ PO PRN (06:49)
[2021-10-11] MEDS: MAGNESIUM SULFATE 1 GRAM/100 mL PREMIX 1 G/100 ML BAG IV PRN ×2 (09:51→11:02)
[2021-10-11] MEDS: ZOFRAN INJ 4 MG VIAL IVP PRN (11:02)
[2021-10-11 12:44] VITALS: BP 171/93
== END 2021-10-11 14:45 | disposition home or self-care (01) | DRG 389 ==
LOC: ER 18:44 → MED/SURG 10-08 00:20
PROVIDERS: ADMIT Surgery; ATTEND Surgery
DX: R10.84 Generalized abdominal pain; R11.2 Nausea with vomiting, unspecified; K50.90 Crohn's disease, unspecified, without complications; A04.72 Enterocolitis due to Clostridium difficile, not specified as recurrent; K56.690 Other partial intestinal obstruction